=== PATIENT | female | born 1985 | race Caucasian/White ===

== ENCOUNTER → 2017-12-21 12:58 | Emergency (ER) | payer BC ==
[~2017-12-21 12:58] MED LIST: NS 0.9% 1000 ML* 1,000 ML IV ONE; methylPREDNISolone SOD 40 MG* 1 ML VIAL IV ONE; oxyCODONE/Acetamin 5/325 MG* TAB PO ONE
[2017-12-21 14:40] LABS: ABS Basophils 0.1 10^3/ul (0-0.2); ABS Eosinophils 0.5 10^3/ul (0-0.6); ABS Lymphocytes 2.5 10^3/ul (1.0-4.8); ABS Monocytes 0.9 10^3/ul (0-0.8); ABS Neutrophils 7.9 10^3/ul (1.5-7.7); ABS Nucleated RBC 0 10^3/ul; Eosinophil % 4.1 % (0-6); Hematocrit 42 % (35-47); Hemoglobin 14.1 g/dl (12.0-16.0); Lymphocyte % 20.8 % (25-47); Mean Corpuscular HGB Conc 34 g/dl (31-36); Mean Corpuscular Hemoglobin 30 pg (27-31); Mean Corpuscular Volume 90 fL (80-97); Mean Platelet Volume 9.2 um3 (7.4-10.4); Nucleated Red Blood Cells % 0.1; Platelet Count 208 10^3/ul (150-450); Red Blood Count 4.69 10^6/ul (4.00-5.40); Red Cell Distribution Width 13 % (10.5-15); White Blood Count 11.8 10^3/ul (3.5-10.8)
--- NOTE | 2017-12-21 15:50 | ED ---
Abdominal Pain/Female - HPI Summary HPI Summary: Pt is a 32 y/o female who presents to the ED c/o abdominal pain for 1 day. She has a hx of ulcerative colitis but stopped taking Lialda because her insurance stopped covering it. Pt c/o intermittent lower abdominal cramps, rated an 8/10 in severity, and bloody stool with mucus. She also was nauseated this morning and feels dehydrated. She states this feels similar to her normal flare ups, but she usually doesnt have blood in her stool and these cramps are more severe. Pt does not currently have any abdominal pain. She denies any fever, vomiting, joint aches, or rash. She denies any recent travel or abdominal surgeries. She has a FHx of GI problems. - History of Current Complaint Chief Complaint: EDAbdPain Stated Complaint: ABD PAIN/BLOODY STOOL Time Seen by Provider: 12/21/17 14:10 Hx Obtained From: Patient Onset/Duration: Gradual Onset, Lasting Days - 1, Resolved Timing: Intermittent Episode Lasting Severity Initially: Severe Severity Currently: None Pain Intensity: 8 Pain Scale Used: 0-10 Numeric Location: Diffuse Radiates: No Alleviating Factor(s): Nothing Associated Signs and Symptoms: Positive: Nausea. Negative: Fever, Vomiting Allergies/Adverse Reactions: Allergies Allergy/AdvReac Type Severity Reaction Status Date / Time No Known Allergies Allergy Verified 12/21/17 14:49 PMH/Surg Hx/FS Hx/Imm Hx Cardiovascular History: Denies: Hx Hypertension GI History: Reports: Other GI Disorders - Ulcerative colitis History: Reports: Other Problems/Disorders - PCOS - Immunization History Immunizations Up to Date: Yes Infectious Disease History: No Infectious Disease History: Denies: Traveled Outside the [place] in Last 30 Days - Family History Known Family History: Positive: Cardiac Disease, Other - GI disease - Social History Alcohol Use: Occasionally Hx Substance Use: No Substance Use Type: Reports: None Hx Tobacco Use: No Smoking Status (MU): Never Smoked Tobacco Review of Systems Negative: Fever Positive: Abdominal Pain, Nausea, Other - Bloody stool. Negative: Vomiting Negative: Arthralgia Negative: Rash All Other Systems Reviewed And Are Negative: Yes Physical Exam - Summary Physical Exam Summary: Appearance: Well appearing, no pain distress Skin: warm, dry, reflects adequate perfusion Head/face: normal Eyes: EOMI, SMITH ENT: mucous membranes moist Neck: supple, non-tender Respiratory: CTA, breath sounds present Cardiovascular: RRR, pulses symmetrical Abdomen: diffuse mild tenderness, soft Bowel Sounds: present Musculoskeletal: normal, strength/ROM intact Neuro: normal, sensory motor intact, A&Ox3 Triage Information Reviewed: Yes Vital Signs On Initial Exam: Initial Vitals Temp Pulse Resp BP Pulse Ox 98.7 F 73 16 139/78 98 12/21/17 13:01 12/21/17 13:01 12/21/17 13:01 12/21/17 13:01 12/21/17 13:01 Vital Signs Reviewed: Yes Diagnostics - Vital Signs Vital Signs Temp Pulse Resp BP Pulse Ox 12/21/17 15:15 65 121/83 97 12/21/17 15:00 66 98 12/21/17 14:45 61 118/78 97 12/21/17 14:44 65 98 12/21/17 13:01 98.7 F 73 16 139/78 98 - Laboratory Lab Results: Lab Results 12/21/17 12/21/17 12/21/17 Range/Units 14:21 14:21 14:21 WBC 11.8 H (3.5-10.8) 10^3/ul RBC 4.69 (4.00-5.40) 10^6/ul Hgb 14.1 (12.0-16.0) g/dl Hct 42 (35-47) % MCV 90 (80-97) fL MCH 30 (27-31) pg MCHC 34 (31-36) g/dl RDW 13 (10.5-15) % Plt Count 208 (150-450) 10^3/ul MPV 9.2 (7.4-10.4) um3 Neut % (Auto) 66.9 (38-83) % Lymph % (Auto) 20.8 L (25-47) % [place] % (Auto) 7.7 H (0-7) % Eos % (Auto) 4.1 (0-6) % Baso % (Auto) 0.5 (0-2) % Absolute Neuts (auto) 7.9 H (1.5-7.7) 10^3/ul Absolute Lymphs (auto) 2.5 (1.0-4.8) 10^3/ul Absolute Monos (auto) 0.9 H (0-0.8) 10^3/ul Absolute Eos (auto) 0.5 (0-0.6) 10^3/ul Absolute Basos (auto) 0.1 (0-0.2) 10^3/ul Absolute Nucleated RBC 0 10^3/ul Nucleated RBC % 0.1 Sodium 139 (135-145) mmol/L Potassium 3.6 (3.5-5.0) mmol/L Chloride 111 (101-111) mmol/L Carbon Dioxide 22 (22-32) mmol/L Anion Gap 6 (2-11) mmol/L BUN 9 (6-24) mg/dL Creatinine 0.85 (0.51-0.95) mg/dL Est GFR ( Amer) 94.4 (>60) Est GFR (Non-Af Amer) 78.0 (>60) BUN/Creatinine Ratio 10.6 (8-20) Glucose 96 (70-100) mg/dL Lactic Acid 0.9 (0.5-2.0) mmol/L Calcium 8.8 (8.6-10.3) mg/dL Total Bilirubin 0.30 (0.2-1.0) mg/dL AST 17 (13-39) U/L ALT 17 (7-52) U/L Alkaline Phosphatase 91 (34-104) U/L C-Reactive Protein 5.05 (<8.01) mg/L Total Protein 7.0 (6.4-8.9) g/dL Albumin 4.1 (3.2-5.2) g/dL Globulin 2.9 (2-4) g/dL Albumin/Globulin Ratio 1.4 (1-3) Lipase 38 (11.0-82.0) U/L Beta HCG, Quant < 0.60 mIU/mL Result Diagrams: 12/21/17 14:21 12/21/17 14:21 Lab Statement: Any lab studies that have been ordered have been reviewed, and results considered in the medical decision making process. Re-Evaluation - Re-Evaluation First Eval Re-Evaluation Time: 15:50 Change: Unchanged Comment: Discussed results with patient. Abdominal Pain Fem Course/Dx - Course Course Of Treatment: Patient with a history of ulcerative colitis he describes crampy abdominal pain intermittently along with blood in the stool. She has not been on any medications and has not established with a doctor or a GI doctor in more than 6 months that she slipped in the local area. Laboratories indicate CRP is not elevated and her white blood cell, is only modestly elevated. Discussed her case with GI Dr. Galindo. He suggested that he like to hold off on giving her steroids but if I felt it was appropriate and he would have her on a Medrol Dosepak. The patient absolutely refuses to not go on steroids given that she has had these exacerbations in the past. She'll be given the Medrol Dosepak after dose of IV Solu-Medrol here. We'll place her on Cipro, Flagyl and Lialda as well as Levsin and pain control. Given that she has ulcerative colitis she should avoid NSAIDs. [facility], primary care referral and GI referral - Diagnoses Differential Diagnosis: Positive: Appendicitis, Bowel Obstruction, Constipation , Other - Colitis flare Provider Diagnoses: Acute abdominal pain, Ulcerative colitis, Rectal bleeding - Provider Notifications Discussed Care Of Patient With: Spenser Galindo Time Discussed With Above Provider: 15:50 Instructed by Provider To: Other - He normally would not give the patient a Medrol pack but the pt is demanding it. Discharge - Sign-Out/Discharge Documenting (check all that apply): Patient Departure - Discharge - Discharge Plan Condition: Improved Disposition: HOME Prescriptions: Ciprofloxacin HCl [Cipro] 500 mg PO BID #14 tablet Hyoscyamine Sulfate [Levsin/Sl] 0.125 mg SL Q6H PRN #30 sub PRN Reason: cramping Mesalamine [Lialda] 1.2 gm PO TID #90 tablet. methylPREDNISolone [Medrol] 4 mg PO DAILY #1 tab.ds.pk metroNIDAZOLE [Flagyl 500 MG TAB] 500 mg PO TID #1 tab traMADol TAB* [Ultram*] 50 mg PO Q6HR PRN #12 tab MDD 4 PRN Reason: Severe Pain Patient Education Materials: Ulcerative Colitis (ED) Referrals: [facility] [Outside] [facility] [place] [facility] [Outside] Zeina Ozuna MD [Medical Doctor] - Additional Instructions: Call today to schedule appointment with her primary care doctor and also the GI doctor. If you're unable to be seen quickly you can be seen by the [facility]. They generally can provide follow-up to you in 1-2 days. Return with uncontrolled pain, fevers, vomiting, worse, new symptoms or other concerns as discussed. - Billing Disposition and Condition Condition: IMPROVED Disposition: Home - Attestation Statements Document Initiated by Caridad: Yes Documenting Scribe: Jeannie Calloway Provider For Whom Caridad is Documenting (Include Credential): Freddie Mcginnis MD Scribe Attestation: Jeannie Restrepo, scribed for Freddie Mcginnis MD on 12/21/17 at 2058. Scribe Documentation Reviewed: Yes Provider Attestation: The documentation as recorded by the sawyeribJeannie barahona accurately reflects the service I personally performed and the decisions made by me, Freddie Mcginins MD
[2017-12-21 16:48] VITALS: BP 136/75
== END | disposition home or self-care (01) ==
LOC: ED 12:58
DX: K51.90 Ulcerative colitis, unspecified, without complications (principal); R10.9 Unspecified abdominal pain; R11.0 Nausea; K62.5 Hemorrhage of anus and rectum
CPT/HCPCS: 36415; 80053; 83605; 83690; 84702; 85025; 86140; 96374; 99282; A9270-GY; J2920

== ENCOUNTER 2018-09-22 14:41 | Emergency (ER) | payer BC, OTHER ==
[2018-09-22 15:41] VITALS: BP 132/81
--- NOTE | 2018-09-22 16:41 | UC ---
Bite Injury/Animal HPI - HPI Summary HPI Summary: 33-year-old woman comes in with a chief complaint of a cat bite to her left index finger. 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 There was quite a bit of bleeding and patient washed under the sink water and then applied a dressing and stop the bleeding. Patient reports she is up-to -date on her tetanus shot. - History of Current Complaint Chief Complaint: UCLaceration Stated Complaint: CAT BITE Time Seen by Provider: 09/22/18 16:36 Hx Last Menstrual Period: [id number] Pain Intensity: 6 - Allergies/Home Medications Allergies/Adverse Reactions: Allergies Allergy/AdvReac Type Severity Reaction Status Date / Time No Known Allergies Allergy Verified 09/22/18 15:41 Home Medications: Home Medications Pnv No.95/Ferrous Fum/Folic AC [ Caplet] 1 each PO DAILY 09/22/18 [ History Confirmed 09/22/18] PMH/Surg Hx/FS Hx/Imm Hx Previously Healthy: Yes - Surgical History Surgical History: None - Family History Known Family History: Positive: Cardiac Disease, Other - GI disease - Social History Alcohol Use: Occasionally Substance Use Type: None Smoking Status (MU): Never Smoked Tobacco - Immunization History Most Recent Tetanus Shot: 2015 Review of Systems All Other Systems Reviewed And Are Negative: Yes Constitutional: Positive: Negative Skin: Positive: Other - SEE HPI Eyes: Positive: Negative ENT: Positive: Negative Respiratory: Positive: Negative Cardiovascular: Positive: Negative Gastrointestinal: Positive: Negative Motor: Positive: Negative Neurovascular: Positive: Negative Musculoskeletal: Positive: Negative Neurological: Positive: Negative Psychological: Positive: Negative Is Patient Immunocompromised?: No Physical Exam Triage Information Reviewed: Yes Appearance: Well-Appearing, No Pain Distress, Well-Nourished Vital Signs: Initial Vital Signs Temp 98.1 F 09/22/18 15:35 Pulse 86 09/22/18 15:35 Resp 16 09/22/18 15:35 BP 132/81 09/22/18 15:35 Pulse Ox 99 09/22/18 15:35 Vital Signs Reviewed: Yes Eye Exam: Normal Eyes: Positive: Conjunctiva Clear Neck: Positive: Supple Respiratory: Positive: No respiratory distress Musculoskeletal: Positive: Strength Intact, ROM Intact Neurological Exam: Normal Neurological: Positive: Alert, Muscle Tone Normal Psychological Exam: Normal Psychological: Positive: Age Appropriate Behavior Skin: Positive: Other - There is a 1 cm subcutaneous laceration on the left index finger between the DIP and PIP. No active bleeding. There is some ecchymosis. Finger has full range of motion full-strength normal sensation. Bite Injury Course/Dx - Course Course Of Treatment: Because it is a cat bite and the edges were well approximated did not suture the wound. Antibiotic or it was placed and a dressing placed by nursing. Patient is up-to-date on her tetanus and we are starting her on Augmentin. To have her follow up with orthopedic hands if not improving or worse. If she gets worse before she can see orthopedics she is to get reevaluated here or the emergency department. - Differential Dx/Diagnosis Provider Diagnosis: Open wound of finger of left hand due to cat bite Discharge - Sign-Out/Discharge Documenting (check all that apply): Patient Departure All imaging exams completed and their final reports reviewed: No Studies - Discharge Plan Condition: Stable Disposition: HOME Prescriptions: Amoxicillin/Clavulanate TAB* [Augmentin TAB 875*] 875 mg PO BID #20 tab Patient Education Materials: Animal Bite (ED), Laceration (ED) Referrals: Amy Nesbitt MD [Medical Doctor] - Additional Instructions: FOLLOW UP WITH ORTHOPEDICS, HAND SPECIALIST, IF NOT COMPLETELY IMPROVED. GET RECHECKED SOONER IF YOUR CONDITION WORSENS; SIGNS OF INFECTION OR ANY QUESTIONS OR CONCERNS. - Billing Disposition and Condition Condition: STABLE Disposition: Home
== END 2018-09-22 17:05 | disposition home or self-care (01) ==
LOC: UCEAST 14:41
DX: S61.251A Open bite of left index finger without damage to nail, initial encounter (principal); W55.01XA Bitten by cat, initial encounter; Y93.89 Activity, other specified; Y92.531 Health care provider office as the place of occurrence of the external cause; Y99.0 Civilian activity done for income or pay
CPT/HCPCS: 99212; G0463

== ENCOUNTER 2020-07-20 07:48 | Inpatient (IN) ==
[2020-07-20 08:29] LABS: Hematocrit 34 % (35-47); Hemoglobin 11.2 g/dL (12.0-16.0); Mean Corpuscular HGB Conc 33 g/dL (31-36); Mean Corpuscular Hemoglobin 28 pg (27-31); Mean Corpuscular Volume 86 fL (80-97); Mean Platelet Volume 8.7 fL (7.4-10.4); Platelet Count 253 10^3/uL (150-450); Red Blood Count 3.94 10^6 /uL (3.70-4.87); Red Cell Distribution Width 14 % (10-15); White Blood Count 12.2 10^3/uL (3.5-10.8)
[2020-07-20] MEDS ORDERED: Lactated Ringers 500 ml BAG 500 ML IV SCH (09:00)
[2020-07-20 09:42] LABS: Activated Partial Thrombo Time 26.2 seconds (26.0-38.0); Fibrinogen 488.8 mg/dL (110.8-404.3); INR 0.96 (0.82-1.09)
[2020-07-20 09:44] LABS: ABS Basophils 0.1 10^3/ul (0-0.2); ABS Eosinophils 0.2 10^3/ul (0-0.6); ABS Lymphocytes 1.6 10^3/ul (1.0-4.8); ABS Monocytes 0.9 10^3/ul (0-0.8); ABS Neutrophils 9.5 10^3/ul (1.5-7.7); Eosinophil % 1.3 %; Lymphocyte % 13.1 %
[2020-07-20] MEDS ORDERED: Lactated Ringers 1000 ml BAG 1,000 ML IV SCH (12:00)
[2020-07-21 10:06] LABS: Hematocrit 35 % (35-47); Hemoglobin 11.6 g/dL (12.0-16.0); Mean Corpuscular HGB Conc 33 g/dL (31-36); Mean Corpuscular Hemoglobin 29 pg (27-31); Mean Corpuscular Volume 86 fL (80-97); Mean Platelet Volume 8.6 fL (7.4-10.4); Platelet Count 262 10^3/uL (150-450); Red Blood Count 4.07 10^6 /uL (3.70-4.87); Red Cell Distribution Width 14 % (10-15); White Blood Count 11.9 10^3/uL (3.5-10.8)
[2020-07-21 10:35] LABS: ABS Basophils 0.1 10^3/ul (0-0.2); ABS Eosinophils 0.1 10^3/ul (0-0.6); ABS Lymphocytes 1.7 10^3/ul (1.0-4.8); ABS Monocytes 0.6 10^3/ul (0-0.8); ABS Neutrophils 9.5 10^3/ul (1.5-7.7); Eosinophil % 0.9 %; Lymphocyte % 14.1 %
[2020-07-21 11:17] LABS: Activated Partial Thrombo Time 25.2 seconds (26.0-38.0); Fibrinogen 556.1 mg/dL (110.8-404.3)
== END 2020-07-21 12:08 | disposition home or self-care (01) | DRG 833 ==
LOC: MCHOBOUT 07:48 → MCHOB 07:48 → OBSVTOIN 08:18
PROVIDERS: ADMIT Obstetrics & Gynecology; ATTEND Obstetrics & Gynecology

== ENCOUNTER 2020-09-12 09:46 | Inpatient (IN) ==
[2020-09-12] MEDS ORDERED: Buffered Lidocaine 1% SYRIN 1 ml INTRADERM ONE (10:50)
[2020-09-12] MEDS ORDERED: Lactated Ringers 1000 ml BAG 1,000 ML IV ONE (10:50)
[2020-09-12] MEDS ORDERED: Dinoprostone 10 MG VAG.SUPP VAGINAL ONE (10:50)
[2020-09-12] MEDS ORDERED: Lactated Ringers 1000 ml BAG 1,000 ML IV SCH (11:00)
[2020-09-12 12:46] LABS: Urine Benzodiazepine Screen None Detected (None Detect); Urine Cannabinoids Screen None Detected (None Detect); Urine Opiates Screen None Detected (None Detect)
[2020-09-13] MEDS ORDERED: Morphine 10 MG/ML VIAL (1 ml) IV ONE (00:10)
[2020-09-13] MEDS ORDERED: Promethazine INJ(RESTRICTED) 25 MG/ML 1 ml VIAL IV ONE (00:11)
[2020-09-13 01:05] LABS: Hematocrit 37 % (35-47); Hemoglobin 12.5 g/dL (12.0-16.0); Mean Corpuscular HGB Conc 33 g/dL (31-36); Mean Corpuscular Hemoglobin 28 pg (27-31); Mean Corpuscular Volume 85 fL (80-97); Mean Platelet Volume 9.4 fL (7.4-10.4); Platelet Count 185 10^3/uL (150-450); Red Blood Count 4.39 10^6 /uL (3.70-4.87); Red Cell Distribution Width 14 % (10-15); White Blood Count 16.4 10^3/uL (3.5-10.8)
[2020-09-13 01:19] LABS: ABS Basophils 0.2 10^3/ul (0-0.2); ABS Eosinophils 0.1 10^3/ul (0-0.6); ABS Lymphocytes 1.8 10^3/ul (1.0-4.8); ABS Monocytes 1.3 10^3/ul (0-0.8); Eosinophil % 0.5 %
[2020-09-13 01:21] LABS: Albumin 3.4 g/dL (3.2-5.2); Albumin/Globulin Ratio 1.1 (1-3); Calcium 9.1 mg/dL (8.6-10.3); EGFR African American 102.3 (>60); EGFR Non-African American 84.5 (>60); Potassium 3.9 mmol/L (3.5-5.0); Total Bilirubin 0.3 mg/dL (0.2-1.0); Total Protein 6.4 g/dL (6.4-8.9); Uric Acid 4.7 mg/dL (2.3-6.6)
[2020-09-13] MEDS ORDERED: OBEPIDURAL 250 ML EPIDURAL ONE (03:19)
[2020-09-13] MEDS ORDERED: Phenylephrine 40 mcg/mL 10mL (400mcg) SYRINGE IV PUSH PRN ×2 (04:07)
[2020-09-13] MEDS ORDERED: EPHEDrine (Pressors) 50 MG/ML VIAL IV PUSH PRN ×2 (04:07)
[2020-09-13] MEDS ORDERED: Sodium Citrate/Citric Acid LIQ 15 ML UDC PO PRN (04:07)
[2020-09-13] MEDS ORDERED: Lactated Ringers 1000 ml BAG 1,000 ML IV ONE (04:07)
[2020-09-13] MEDS: Lactated Ringers 1000 ml BAG 1,000 ML IV SCH ×2 (04:48→09:21)
[2020-09-13] MEDS ORDERED: OBEPIDURAL 250 ML EPIDURAL SCH (05:00)
[2020-09-13 05:33] LABS: Urine Appearance Cloudy; Urine Bilirubin Negative (Negative); Urine Blood 3+ (Negative); Urine Color Yellow; Urine Glucose Negative (Negative); Urine Ketones Trace (Negative); Urine Nitrite Negative (Negative); Urine Protein 1+(30 mg/dL) (Negative); Urine Specific Gravity 1.014 (1.002-1.030); Urine Urobilinogen Negative (Negative)
[2020-09-13 05:49] LABS: Urine Bacteria Absent (Absent); Urine Red Blood Cell 3+(>10/hpf) (Absent); Urine Squamous Epithelial Cell Present (Absent); Urine White Blood Cell Trace(0-5/hpf) (Absent)
[2020-09-13] MEDS ORDERED: ceFOXitin 2 GM IVPREMIX 2 GM/50 ML BAG ONE (09:59)
[2020-09-13] MEDS ORDERED: ceFOXitin 2 GM IVPREMIX 2 GM/50 ML BAG IVPB ONE (10:00)
[2020-09-13] MEDS ORDERED: fentaNYL 100 mcg/2 ml 50 MCG/ML VIAL ONE (10:03)
[2020-09-13] MEDS ORDERED: Lidocaine 2% w/ EPI 1:200,000 MPF 20 ML SDV VIAL ONE ×2 (10:04→10:07)
[2020-09-13] MEDS ORDERED: Morphine PF AMP (0.5MG/ML) 5 MG/10 ML AMP ONE (10:29)
[2020-09-13] MEDS ORDERED: Naloxone 4 mg VIAL (10 ml) 2 MG in NS 0.9% 250 ml 250 ML IV PRN (11:32)
[2020-09-13] MEDS ORDERED: Naloxone 0.4 mg VIAL 0.4 mg/ml 1 ml VIAL IV PRN (11:32)
[2020-09-13] MEDS ORDERED: DiMENhydriNATE IV 50 mg/ml 1 ml VIAL IV PUSH PRN (11:32)
[2020-09-13] MEDS ORDERED: Ondansetron 4 mg VIAL 2 MG/ML 2 ml VIAL IV PRN (11:32)
[2020-09-13] MEDS ORDERED: Metoclopramide 5 MG/ML VIAL (10 mg) IV PRN (11:32)
[2020-09-13] MEDS ORDERED: Witch Hazel PAD JAR TOPICAL PRN (11:34)
[2020-09-13] MEDS ORDERED: Dibucaine 1% OINT 28.35 GM TUBE PR PRN (11:34)
[2020-09-13] MEDS ORDERED: Glycerin ADULT 2.4 gm SUPP PR PRN (11:34)
[2020-09-13] MEDS ORDERED: Oxytocin in LR 20 UNITS/1,000 ML BAG IVPB ONE (11:38)
[2020-09-13] MEDS ORDERED: Lactated Ringers 1000 ml BAG 1,000 ML IV SCH (12:00)
[2020-09-14 07:09] LABS: ABS Basophils 0.1 10^3/ul (0-0.2); ABS Eosinophils 0.2 10^3/ul (0-0.6); ABS Lymphocytes 1.6 10^3/ul (1.0-4.8); ABS Monocytes 1.1 10^3/ul (0-0.8); ABS Neutrophils 11.9 10^3/ul (1.5-7.7); Eosinophil % 1.6 %; Hematocrit 30 % (35-47); Hemoglobin 10.1 g/dL (12.0-16.0); Lymphocyte % 10.5 %; Mean Corpuscular HGB Conc 34 g/dL (31-36); Mean Corpuscular Hemoglobin 29 pg (27-31); Mean Corpuscular Volume 85 fL (80-97); Mean Platelet Volume 9.1 fL (7.4-10.4); Platelet Count 150 10^3/uL (150-450); Red Blood Count 3.52 10^6 /uL (3.70-4.87); Red Cell Distribution Width 15 % (10-15); White Blood Count 14.8 10^3/uL (3.5-10.8)
[2020-09-14 07:25] LABS: Albumin 2.7 g/dL (3.2-5.2); Albumin/Globulin Ratio 1.2 (1-3); Calcium 8.4 mg/dL (8.6-10.3); EGFR African American 119.8 (>60); Globulin 2.3 g/dL (2-4); Potassium 3.7 mmol/L (3.5-5.0); Total Bilirubin 0.2 mg/dL (0.2-1.0)
[2020-09-16 09:17] VITALS: BP 159/85
== END 2020-09-16 12:44 | disposition home or self-care (01) | DRG 540 ==
LOC: MCHOBOUT 09:46 → MCHOB 11:02
PROVIDERS: ADMIT Midwife; ATTEND Obstetrics & Gynecology